=== PATIENT | male | born 1935 | race American Indian/Alaskan Native ===

== ENCOUNTER 2017-04-08 11:08 | Outpatient (CLI) | payer MEDICARE, OTHER ==
--- NOTE | 2017-04-08 16:09 | Cat Scan Report ---
CT CHEST, ABDOMEN AND PELVIS WITH CONTRAST: 04/08/17 11:08:00 CLINICAL: Anemia. 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 COMPARISON: None. TECHNIQUE: Volumetric acquisition and 1.25 millimeter scan reconstructions after the uneventful intravenous injection of 100 cc of Omnipaque 300. Consent was obtained prior to the administration of the contrast. Oral contrast was also given. FINDINGS: Chest: The lungs are clear. No pulmonary nodule or mass. Normal aorta, heart and pulmonary arteries. Normal esophagus and trachea. No mediastinal or hilar lymphadenopathy.No axillary or supraclavicular lymphadenopathy. Abdomen: Normal liver size, contour and overall density. Numerous benign hepatic cysts. The largest measures 3.3 x 2.7 cm in the right lobe. No solid mass. Normal bile ducts. The gallbladder is partially contracted and contains one calculus measuring 8 mm. Several small celiac lymph nodes and a portacaval lymph node measuring 1.6 x 0.9 cm. Normal stomach, duodenum, pancreas and spleen. Kidneys are normal except for a 1.2 cm cyst in the midportion of left kidney. The renal collecting systems and ureters are nondilated. Moderate calcification and tortuosity of the abdominal aorta and iliac arteries. No lymphadenopathy.No ascites.Normal small bowel. A few scattered diverticula the colon in otherwise normal colon. The appendix is normal. No ascites. Pelvis: The urinary bladder is small and unremarkable. Brachytherapy seeds in the prostate. Normal rectum. Mild sigmoid diverticulosis but no diverticulitis. No pelvic lymphadenopathy. Bone windows demonstrate no suspicious bone lesion. IMPRESSION: 1. Normal chest. 2. Benign hepatic cysts. 3. Mildly prominent celiac and luz hepatis lymph nodes which are uncertain etiology. No suspicious retroperitoneal or pelvic lymph nodes. 4. Diverticulosis but no diverticulitis. 5. Cholelithiasis.
== END 2017-04-08 11:09 | disposition home or self-care (01) ==
LOC: SPVIMAG 11:08
PROVIDERS: ATTEND Internal Medicine Hematology & Oncology
DX: C61 Malignant neoplasm of prostate (principal); K76.89 Other specified diseases of liver; D64.9 Anemia, unspecified; C67.9 Malignant neoplasm of bladder, unspecified; K80.20 Calculus of gallbladder without cholecystitis without obstruction; N28.1 Cyst of kidney, acquired; I70.0 Atherosclerosis of aorta; K57.30 Diverticulosis of large intestine without perforation or abscess without bleeding; M79.89 Other specified soft tissue disorders; I10 Essential (primary) hypertension; E78.00 Pure hypercholesterolemia, unspecified; F17.200 Nicotine dependence, unspecified, uncomplicated
CPT/HCPCS: 71260; 74177; Q9967